=== PATIENT | male | born 1950 | race Caucasian/White ===

== ENCOUNTER 2017-09-11 13:59 | Emergency (ER) | payer MEDICARE, OTHER ==
[2017-09-11] MEDS ORDERED: ASPIRIN 81 MG CHEWABLE CTB ONE (14:04)
[2017-09-11] MEDS ORDERED: NITROGLYCERIN 0.4 MG TAB SL ONE (14:04)
[2017-09-11] MEDS ORDERED: ASPIRIN 81 MG CHEWABLE CTB PO ONE (14:05)
[2017-09-11] MEDS: NITROGLYCERIN 0.4 MG TAB SL PRN ×2 (14:05→14:18)
[2017-09-11] MEDS ORDERED: METOPROLOL TARTRATE 25 MG TAB PO ONE ×2 (14:07→16:13)
[2017-09-11] MEDS ORDERED: FAMOTIDINE 10 MG/ML SOL IV ONE (14:07)
[2017-09-11] MEDS ORDERED: ONDANSETRON HCL 4 MG/2 ML SOL IV ONE (14:07)
[2017-09-11] MEDS ORDERED: METOPROLOL TARTRATE 25 MG TAB ONE ×2 (14:09→16:36)
[2017-09-11 14:15] LABS: BASOPHILS % (AUTO) 1 % (0-3); EOSINOPHILS % (AUTO) 2 % (0-9); HEMATOCRIT 44 % (39-53); MEAN CORPUSCULAR HGB CONC 35.8 gm/dl (32.0-36.0); MEAN CORPUSCULAR VOLUME 86 fL (80-100); MONOCYTES % (AUTO) 10.7 % (0-12); NEUTROPHILS % (AUTO) 69.8 % (37-80)
[2017-09-11] MEDS ORDERED: SODIUM CHLORIDE 0.9% 1000ML 1,000 ML IV SCH (14:15)
[2017-09-11] MEDS ORDERED: PANTOPRAZOLE SODIUM 40 MG/10 ML PDS IV ONE (14:25)
[2017-09-11] MEDS ORDERED: PANTOPRAZOLE SODIUM 40 MG/10 ML PDS ONE (14:26)
[2017-09-11] MEDS ORDERED: ONDANSETRON HCL 4 MG/2 ML SOL ONE (14:26)
[2017-09-11 14:30] LABS: ALBUMIN 4.1 gm/dl (3.4-5.0); ALT 37 IU/L (14-63); CALCIUM 9.2 mg/dl (8.5-10.1); GLOM FILT RATE 61 mL/min (>60); POTASSIUM 3.9 mMol/L (3.5-5.1); SODIUM 143 mMol/L (136-145)
[2017-09-11] MEDS ORDERED: LABETALOL HYDROCHLORIDE 5 MG/ML SOL IV ONE ×3 (15:09→18:53)
[2017-09-11 16:30] VITALS: TEMP 98
[2017-09-11] MEDS ORDERED: HYDRALAZINE HYDROCHLORIDE 20 MG/ML SOL ONE (18:02)
[2017-09-11] MEDS ORDERED: HYDRALAZINE HYDROCHLORIDE 20 MG/ML SOL IV ONE ×2 (18:04→18:35)
[2017-09-11] MEDS ORDERED: RIVAROXABAN 10 MG TAB PO ONE ×2 (18:35→18:36)
[2017-09-11 19:29] VITALS: RESP 22
[2017-09-11 20:16] VITALS: BP 128/69; PULSE 98; O2SAT 99
[2017-09-12] MEDS ORDERED: RIVAROXABAN 10 MG TAB PO SCH (09:00)
== END 2017-09-11 20:30 | disposition short-term general hospital (02) | DRG 313 ==
LOC: ED 13:59
DX: R07.9 Chest pain, unspecified (principal); I48.91 Unspecified atrial fibrillation; I10 Essential (primary) hypertension; R11.0 Nausea; R06.02 Shortness of breath; Z79.01 Long term (current) use of anticoagulants
CPT/HCPCS: 36415; 71045; 80053; 82550; 84484; 85025; 85378; 85610; 93005; 96365; 96366; 96374; 96375; 99284; 99285; J0360; J2405; S0028; A9270-GY; J3490